=== PATIENT | female | born 1945 | race American Indian/Alaskan Native ===

== ENCOUNTER 2019-12-11 14:02 | Outpatient (CLI) | payer MEDICARE ==
--- NOTE | 2019-12-11 14:55 | Vascular Lab Report ---
DUPLEX DOPPLER LOWER EXTREMITY VEINS, LEFT INDICATION: Left leg pain and swelling. TECHNIQUE: Duplex doppler imaging was performed through the veins of the left lower extremity using venous compr ession and other maneuvers. COMPARISON: None available. FINDINGS: Common femoral vein: Negative. Superficial femoral vein: Negative. Popliteal vein: Negative. Calf veins: Negative. Additional findings: There is no evidence of a popliteal cyst or other significant abnormality. IMPRESSION: No sonographic evidence for DVT in the left lower extremity. Signer Name: Buck Darling MD Signed: 12/11/2019 2:50 PM Workstation Name: [id number]
== END 2019-12-11 14:03 | disposition home or self-care (01) ==
LOC: VAS 14:02
PROVIDERS: ATTEND Family Medicine
DX: M79.89 Other specified soft tissue disorders (principal); M79.605 Pain in left leg